=== PATIENT | male | born 1985 | race Hispanic/Latino ===

== ENCOUNTER 2020-03-05 00:20 | Emergency (ER) | payer SELFPAY ==
[2020-03-05] MEDS ORDERED: LORazepam 2 MG/ML VIAL ONE (06:42)
[2020-03-05] MEDS ORDERED: ACETAMINOPHEN 325 MG TAB ONE (11:20)
[2020-03-05] MEDS ORDERED: IBUPROFEN 800 MG TAB ONE ×2 (11:20→19:55)
[2020-03-05] MEDS ORDERED: cloNIDine 0.1 MG TAB ONE (15:41)
[2020-03-05] MEDS ORDERED: ONDANSETRON 4 MG ODT TAB ONE (15:41)
[2020-03-05] MEDS ORDERED: IBUPROFEN 800 MG TAB PO ONE (20:00)
[2020-03-05] MEDS ORDERED: diphenhydrAMINE 25 MG CAP PO ONE ×2 (20:35→20:38)
[2020-03-06 07:43] VITALS: BP 125/80
[2020-03-06] MEDS ORDERED: DIVALPROEX DR 125 MG TAB PO NR (10:05)
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
[2020-03-06] MEDS ORDERED: clonazePAM 0.5 MG TAB PO NR (10:06)
[2020-03-06] MEDS ORDERED: DIVALPROEX DR 125 MG TAB PO ONE (11:00)
[2020-03-07 13:26] LABS: Alanine Aminotransferase 14 units/L (7-56); Albumin 4.1 g/dL (3.9-5); BUN/Creatinine Ratio 11; Blood Urea Nitrogen 10 mg/dL (9-20); Calcium 9.3 mg/dL (8.4-10.2)
== END 2020-03-06 10:45 | disposition home or self-care (01) ==
LOC: ED 00:20
DX: R51.9 Headache, unspecified (principal); Z53.21 Procedure and treatment not carried out due to patient leaving prior to being seen by health care provider
CPT/HCPCS: 36415; 80053; 83690; J2060; 80320; G0480; Q0162